=== PATIENT | female | born 1985 | race African-American/Black ===

== ENCOUNTER 2020-09-06 17:54 | Emergency (ER) | payer MEDICAID ==
[~2020-09-06] VITALS: Ht 167.6 cm; Wt 58.0 kg
[2020-09-06 18:03] VITALS: BP 96/70
[2020-09-06 19:01] LABS: BASOPHILS % 0.5 % (0.0-2.0); EOSINOPHILS % 0.5 % (0.0-5.0); HEMATOCRIT. 31.9 % (36.0-48.0); HEMOGLOBIN. 10.7 g/dL (12.0-16.0); LYMPHOCYTES % 25.8 % (20.0-50.0); MEAN CORPUSCULAR HEMOGLOBIN 32.2 pg (28.0-32.0); MEAN CORPUSCULAR VOLUME 96.1 fL (81.0-99.0); MEAN PLATELET VOLUME 8.8 fl (7.4-10.4); MONOCYTES % 11.3 % (2.0-8.0); NEUTROPHILS % 61.9 % (40.0-76.0); PLATELET 240 x1000/uL (130-400); RED BLOOD CELL COUNT 3.32 mill/uL (4.2-5.4)
[2020-09-06 19:09] LABS: CHLORIDE 103 mEq/L (98-107)
[2020-09-06 19:33] LABS: B-HCG QUANTITATIVE 137321 mIU/mL (<3)
[2020-09-06] MEDS ORDERED: ACETAMINOPHEN 650MG/20.3ML UDC PO ONE (20:30)
== END 2020-09-06 21:53 | disposition home or self-care (01) ==
LOC: ER 17:54
DX: O26.851 Spotting complicating pregnancy, first trimester (principal); Z3A.12 12 weeks gestation of pregnancy
CPT/HCPCS: 36415; 76801; 80053; 81025; 84702; 85025; 86850; 86900; 99284

== ENCOUNTER 2022-02-08 13:01 | Emergency (ER) | payer MEDICAID ==
[~2022-02-08] VITALS: Ht 160 cm; Wt 58.0 kg
[2022-02-08] MEDS ORDERED: IBUPROFEN 400MG TABLET PO ONE (15:15)
[2022-02-08] MEDS ORDERED: DIPHENHYDRAMINE 25MG CAPSULE PO ONE (15:15)
[2022-02-08 15:25] VITALS: BP 124/88
[2022-02-08] MEDS ORDERED: OFLO5DRO3 EACHEYE (16:51)
== END 2022-02-08 17:01 | disposition home or self-care (01) ==
LOC: ER 13:01
DX: B34.9 Viral infection, unspecified (principal); H10.9 Unspecified conjunctivitis
CPT/HCPCS: 87070; 87430; 99283; Q0163